=== PATIENT | female | born 1965 | race Caucasian/White ===

== ENCOUNTER → 2016-09-23 | Outpatient (CLI) | payer OTHER ==
[~2016-09-23] MED LIST: PEDICHW50 PO
--- NOTE | 2016-09-23 07:49 | DIAGNOSTIC IMAGING REPORT ---
LEFT UPPER EXT JOINT WITHOUT CLINICAL HISTORY: 51 years-old Female presenting with left shoulder pain, no injury, concern for rotator cuff tear. TECHNIQUE: Multisequence, multiplanar MR imaging of the left shoulder was performed without the use of intravenous contrast. IV contrast: None. COMPARISON: Correlation made to plain radiographs of the shoulders from 09/19/2016. FINDINGS: Localizer images: Unremarkable. No bony edema. No focal cartilage defect. Mild superior subluxation of the humeral head relative to the glenoid. This results in narrowing of the acromiohumeral interval, which measures 8 mm. Labrum intact. Fluid noted within the subacromial subdeltoid bursa. Trace left shoulder joint effusion. Linear defect within the supraspinatus tendon extending from the articular to the bursal surface consistent with full-thickness tear at the critical zone. No evidence of retraction. An articular surface partial thickness tear may involve the anteriormost fibers of the infraspinatus muscle at the insertion. Teres minor tendon intact. Subscapularis intact. Long head of the biceps tendon well seated within the intertubercular groove. Biceps labral complex intact. Acromioclavicular joint intact. Concave undersurface of the acromion. Mild atrophy of the supraspinatus without evidence of fatty infiltration. Otherwise normal muscle bulk. IMPRESSION: 1. Mild superior subluxation of the humeral head relative to the glenoid resulting in narrowing of the acromiohumeral interval. 2. Full-thickness tear of the supraspinatus tendon in the critical zone. 3. Articular surface insertional partial tear of the anteriormost fibers of the infraspinatus. Electronically signed by: Terry Nascimento M.D. 09/23/2016 7:48 AM Dictated Date/Time: 09/23/2016 7:38 AM
== END | disposition home or self-care (01) ==
LOC: C.MRI 06:44
PROVIDERS: ATTEND Orthopaedic Surgery
DX: S46.812A Strain of other muscles, fascia and tendons at shoulder and upper arm level, left arm, initial encounter (principal); X58.XXXA Exposure to other specified factors, initial encounter

== ENCOUNTER 2016-12-01 21:36 | Emergency (ER) | payer OTHER ==
[~2016-12-01] VITALS: Ht 165.1 cm; Wt 80.8 kg
[2016-12-01 21:39] VITALS: Ht 165.1 cm; Wt 80.8 kg
[2016-12-01] MEDS ORDERED: ONDANSETRON INJ 2 MG/ML 2 ML VIAL IV STA (22:13)
[2016-12-01] MEDS ORDERED: HYDROmorphone INJ 0.5 MG/0.5 ML SYR IV STA (22:13)
[2016-12-01] MEDS ORDERED: SODIUM CHLORIDE 0.9% 1000ML 1,000 ML IV STA (22:13)
[2016-12-01] MEDS ORDERED: ONDANSETRON INJ 2 MG/ML 2 ML VIAL ONE (22:26)
[2016-12-01] MEDS ORDERED: HYDROmorphone INJ 0.5 MG/0.5 ML SYR ONE (22:26)
[2016-12-01 22:40] LABS: BASO % 0.8 %; BASO ABS # 0.05 K/uL (0-0.2); COMPLETE YES; EOS % 3.5 %; HEMATOCRIT 36.5 % (37-47); IG% 0.2 %; LYMPH % 36.1 %; LYMPH ABS # 2.25 K/uL (1.2-3.4); MEAN CELL VOLUME 87.5 fL (80-100); MEAN CORPUSCULAR HEMOGLOBIN 29.3 pg (25-34); MEAN CORPUSCULAR HGB CONC 33.4 g/dl (32-36); MEAN PLATELET VOLUME 11.2 fL (7.4-10.4); MONO % 10.4 %; PLATELET COUNT 203 K/uL (130-400); RED BLOOD COUNT 4.17 M/uL (4.2-5.4); WHITE BLOOD COUNT 6.24 K/uL (4.8-10.8)
[2016-12-01 22:57] LABS: ALT/SGPT 32 U/L (12-78); BLOOD UREA NITROGEN 17 mg/dl (7-18); BUN/CREATININE RATIO 22.8 (10-20); CALCIUM 8.3 mg/dl (8.5-10.1); CARBON DIOXIDE 25 mmol/L (21-32); CHLORIDE 110 mmol/L (98-107); CREATININE 0.75 mg/dl (0.60-1.20); GLUCOSE 99 mg/dl (70-99); POTASSIUM 4.2 mmol/L (3.5-5.1); SODIUM 141 mmol/L (136-145)
[2016-12-01 23:00] LABS: ALKALINE PHOSPHATASE 121 U/L (45-117); AST/SGOT 30 U/L (15-37)
[2016-12-01 23:08] LABS: URINE APPEARANCE CLEAR (CLEAR); URINE BILIRUBIN NEG (NEG); URINE COLOR YELLOW; URINE NITRITE NEG (NEG); URINE PH 6.5 (4.5-7.5); URINE SPECIFIC GRAVITY 1.023 (1.000-1.030); UROBILINOGEN NEG (NEG)
[2016-12-01 23:09] LABS: MANUAL MICROSCOPIC REQUIRED? NO; REVIEW REQ? NO
--- NOTE | 2016-12-01 23:23 | DIAGNOSTIC IMAGING REPORT ---
ABD/PELVIS WITHOUT FOR STONE CLINICAL HISTORY: 51 years-old Female presenting with EVALUATE FLANK PAIN/HEMATURIA, right-sided flank pain. TECHNIQUE: Multidetector CT of the abdomen and pelvis was performed without the use of intravenous contrast. IV contrast: None. A dose lowering technique was used consistent with the principles of ALARA (as low as reasonably achievable). COMPARISON: 11/20/2015. CT DOSE (mGy.cm): The estimated cumulative dose is 1327.28 mGy.cm. FINDINGS: Hospice Entrance Attendant topogram: Unremarkable. Lung bases: Lung bases clear. Normal heart size. Small pericardial effusion. No pleural effusion. Liver: Normal morphology. Normal density. Biliary: No gross biliary ductal dilatation allowing for noncontrast technique. Normal gallbladder. Pancreas: Normal noncontrast appearance. Spleen: Normal noncontrast appearance. Adrenal glands: Normal noncontrast appearance. Kidneys and ureters: Previously noted right renal calculus is no longer apparent. Hypodensity along the anterior aspect of the lower pole of the left kidney has slightly increased in prominence from the prior exam although fairly similar morphology. No hydronephrosis. No hydroureter. No periureteral fat stranding. Bladder: Incompletely evaluated secondary to underdistention. No bladder calculus. Pelvic organs: Uterus and ovaries normal. Bowel: Postsurgical changes of antecolic Jose-en-Y gastric bypass. Normal appendix. Small amount of fluid in the excluded stomach, which is new from prior. More distally, the pancreaticobiliary limb is dilated with diameter measuring up to 3.5 cm. The distended pancreaticobiliary limb remains distended the level of the anastomosis in the left mid abdomen (series 3 image 200). The Jose limb and distal small bowel appears nonobstructive. No pneumatosis or significant bowel wall thickening. Peritoneal cavity: No free fluid or intraperitoneal gas. Lymph nodes: No gross lymphadenopathy allowing for noncontrast technique. Vasculature: Atherosclerosis of the normal caliber abdominal aorta. Abdominal wall: Mild subcutaneous edema diffusely. Musculoskeletal: Degenerative changes of the spine. IMPRESSION: 1. Findings concerning for obstruction of the pancreaticobiliary limb of the antecolic Jose-en-Y gastric bypass. The obstruction appears to be at the pancreaticobiliary limb anastomosis. This finding was discussed with MENG Fu by Dr. Nascimento at 11:19 PM on 12/01/2016. 2. Subtle prominent contour of the anterior aspect of the lower pole of the left kidney, new from prior. This raises concern for increased size of an underlying renal lesion. Further evaluation with contrast-enhanced CT or MR for dedicated examination of the kidneys is recommended to exclude renal neoplasm. Electronically signed by: Terry Nascimento M.D. 12/01/2016 11:22 PM Dictated Date/Time: 12/01/2016 11:09 PM
--- NOTE | 2016-12-02 00:50 | EMERGENCY ROOM VISIT NOTE ---
ED Visit Note First contact with patient: 22:04 Chief Complaint: I'm having right-sided back pain. History of Present Illness: Ms. Rodriguez is a 51 year-old white female who ambulates into the ED complaining of pain in the right flank area. Historically patient reports she is status post gastric bypass from April 2015 and left adrenal gland removal from 1998. Patient reports she's been feeling well over the last few days. This evening approximately 2.5 hours ago she was sitting at home watching TV and started experiencing right sided thoracic back pain. She reports initially her pain was mild and has gradually increased in intensity. She has difficulty describing her discomfort and feels it is a combination of sharp and cramping. She rates her discomfort 7/10. Her pain does radiate into the abdomen into the epigastric area. Her pain worsens movements of the spine and palpation of the epigastric area. She has not identified any alleviating factors related to the pain. She has not taken any medications for pain prior to arrival at the hospital. Associated with her pain she reports she's been nauseated but has not had any vomiting and she has noticed some increased urinary frequency with out burning urged. Patient denies fevers, chills, sweats, skin eruptions, skin color changes, upper respiratory tract symptoms, shortness of breath, chest pain, diarrhea, constipation, rectal bleeding, black/tarry stools, hematuria, vaginal bleeding, vaginal discharge. Review of Systems: As noted above in history of present illness. All body systems were reviewed and found to be negative as noted above. Past Medical History: As previously noted, diabetes, hypertension, bronchitis and status post bilateral knee replacements. Current Medications: Flintstones vitamins. Allergies to Medications: Morphine, CT dye. Social History: Patient is currently employed; she feels safe in her home environment; she denies tobacco and alcohol use. Physical Examination: Vital Signs: Date Time Temp Pulse Resp B/P (MAP) Pulse Ox O2 Delivery O2 Flow Rate FiO2 12/01/16 23:37 60 16 154/75 98 Room Air 12/01/16 23:04 60 12/01/16 21:39 36.9 80 16 158/101 98 Room Air GENERAL: 51-year-old female in mild to moderate distress due to pain, nontoxic- appearing, afebrile and hemodynamically stable. Patient is found walking around in her room. NEUROLOGICAL: Awake, alert and oriented to person, place and time. Answering questions appropriately and following commands. Normal gait. Good hand eye coordination. SKIN: Warm, dry and pink. No soft tissue eruptions or trauma noted. HEENT: Atraumatic and normocephalic. PERRL. Sclera white and conjunctiva pink. Oral cavity moist and pink. Pharynx is nonerythematous or edematous. Speech normal. No lymphadenopathy. Trachea midline. No jugular venous distention. BACK: No tenderness over the bony spine. No CVA tenderness. THORAX: Lungs sounds are clear to auscultation and equal bilaterally with symmetrical chest wall. No wheezing, rales or rhonchi. No crepitus, tenderness , subcutaneous air or deformities noted. HEART: Regular rate and rhythm. No gallops, rubs or murmurs are appreciated. ABDOMEN: Flat and soft with mild to moderate tenderness in the epigastrium. Increased bowel sounds in all quadrants. No guarding, rigidity or organomegaly. EXTREMITIES: Moves all extremities well on command and with purpose. All distal neurovascular statuses are intact and equal bilaterally. ED Course: Patient is assessed as noted above. Patient's medication list was reviewed. Laboratory Testing: Test 12/01/16 22:25 12/01/16 22:50 Range/Units White Blood Count 6.24 4.8-10.8 K/uL Red Blood Count 4.17 4.2-5.4 M/uL Hemoglobin 12.2 12.0-16.0 g/dL Hematocrit 36.5 37-47 % Mean Corpuscular Volume 87.5 80-100 fL Mean Corpuscular Hemoglobin 29.3 25-34 pg Mean Corpuscular Hemoglobin Concent 33.4 32-36 g/dl Platelet Count 203 130-400 K/uL Mean Platelet Volume 11.2 7.4-10.4 fL Neutrophils (%) (Auto) 49.0 % Lymphocytes (%) (Auto) 36.1 % Monocytes (%) (Auto) 10.4 % Eosinophils (%) (Auto) 3.5 % Basophils (%) (Auto) 0.8 % Neutrophils # (Auto) 3.06 1.4-6.5 K/uL Lymphocytes # (Auto) 2.25 1.2-3.4 K/uL Monocytes # (Auto) 0.65 0.11-0.59 K/uL Eosinophils # (Auto) 0.22 0-0.5 K/uL Basophils # (Auto) 0.05 0-0.2 K/uL RDW Standard Deviation 42.1 36.4-46.3 fL RDW Coefficient of Variation 13.2 11.5-14.5 % Immature Granulocyte % (Auto) 0.2 % Immature Granulocyte # (Auto) 0.01 0.00-0.02 K/uL Sodium Level 141 136-145 mmol/L Potassium Level 4.2 3.5-5.1 mmol/L Chloride Level 110 98-107 mmol/L Carbon Dioxide Level 25 21-32 mmol/L Anion Gap 6.0 3-11 mmol/L Blood Urea Nitrogen 17 7-18 mg/dl Creatinine 0.75 0.60-1.20 mg/dl Est Creatinine Clear Calc Drug Dose 92.1 ml/min Estimated GFR () 106.2 Estimated GFR (Non- 91.6 BUN/Creatinine Ratio 22.8 10-20 Random Glucose 99 70-99 mg/dl Calcium Level 8.3 8.5-10.1 mg/dl Total Bilirubin 0.3 0.2-1 mg/dl Direct Bilirubin < 0.1 0-0.2 mg/dl Aspartate Amino Transf (AST/SGOT) 30 15-37 U/L Alanine Aminotransferase (ALT/SGPT) 32 12-78 U/L Alkaline Phosphatase 121 45-117 U/L Total Protein 7.0 6.4-8.2 gm/dl Albumin 3.6 3.4-5.0 gm/dl Lipase 218 73-393 U/L Urine Color YELLOW Urine Appearance CLEAR CLEAR Urine pH 6.5 4.5-7.5 Urine Specific [place] 1.023 1.000-1.030 Urine Protein NEG NEG Urine Glucose (UA) NEG NEG Urine Ketones TRACE NEG Urine Occult Blood NEG NEG Urine Nitrite NEG NEG Urine Bilirubin NEG NEG Urine Urobilinogen NEG NEG Urine Leukocyte Esterase NEG NEG Noncontrast Abdominal/Pelvic CT: Was reviewed by myself and read by the radiologist and shows dilatation of the diameter of the pancreaticobiliary limb of her bypass measuring up to 3.5 cm. This distention extends to the level of her anastomosis site in the left midabdomen. Additionally radiologist noticed a subtle prominent contour of the anterior aspect of the lower pole of the left kidney raising concerns for possible increased size of an underlying renal lesion. Patient was hydrated with normal saline and she received a 0.5 mg the Dilaudid IV and 4 mg of Zofran IV for her symptoms. Patient was reassessed multiple times during her stay in the emergency department. Patient's case was reviewed with Dr. Meneses; we agreed on diagnostic approach, treatment, disposition and plan per Patient's case was consulted with Dr. Tatum, general surgeon; he recommended contacting the surgery department at [facility] where she had her surgery. Patient's case was consulted with Dr. Gregory, surgeon at [facility]; he recommended interfacility transfer. Patient was educated about today's findings and instructed on her treatment plan. Clinical Impression: Possible small bowel obstruction of her pancreaticobiliary limb of her Jose-en-Y gastric bypass. Decision-Making: Initially my differential diagnosis I considered pyelonephritis , kidney stone, musculoskeletal disorder, early herpes zoster, pancreatitis, hepatitis, bowel obstruction, appendicitis and other causes. Disposition and Plan: Patient to be transferred to [facility] via ambulance.
[2016-12-02] MEDS ORDERED: HYDROmorphone INJ 0.5 MG/0.5 ML SYR ONE (02:34)
[2016-12-02] MEDS ORDERED: NURSING VERBAL MED ORDER ONE (02:45)
[2016-12-02 06:18] VITALS: TEMP 36.7
[2016-12-02] MEDS ORDERED: ONDANSETRON INJ 2 MG/ML 2 ML VIAL IV STA (07:30)
[2016-12-02] MEDS ORDERED: HYDROmorphone INJ 0.5 MG/0.5 ML SYR IV STA (07:30)
[2016-12-02 07:45] VITALS: BP 162/89; PULSE 55; O2SAT 98
== END 2016-12-02 06:45 | disposition short-term general hospital (02) ==
LOC: C.EDB 21:37
DX: R10.9 Unspecified abdominal pain (principal); Z98.84 Bariatric surgery status; E11.9 Type 2 diabetes mellitus without complications; I10 Essential (primary) hypertension; Z96.653 Presence of artificial knee joint, bilateral

== ENCOUNTER → 2016-12-30 | Outpatient (CLI) | payer OTHER ==
[2016-12-30 13:47] LABS: BLOOD UREA NITROGEN 11 mg/dl (7-18); BUN/CREATININE RATIO 14.8 (10-20); CREATININE 0.71 mg/dl (0.60-1.20)
== END | disposition home or self-care (01) ==
LOC: C.LAB 11:22
PROVIDERS: ATTEND Urology
DX: N28.89 Other specified disorders of kidney and ureter (principal)

== ENCOUNTER → 2017-01-02 | Outpatient (CLI) | payer OTHER ==
--- NOTE | 2017-01-02 07:43 | DIAGNOSTIC IMAGING REPORT ---
MRI KIDNEYS WITHOUT A WITH GADOLINIUM CLINICAL HISTORY: N28.89 LEFT RENAL MASS. TECHNIQUE: Imaging was performed prior to and following IV contrast injection. COMPARISON STUDY: CT scan dated 12/01/2016, renal ultrasound dated 01-06 FINDINGS: Imaging was performed in the axial and coronal planes, before and after the administration of 7.5 cc of intravenous Gadavist. There are no suspicious areas of marrow replacement. No hepatic or splenic masses are visualized. The spleen is borderline enlarged measuring 12 cm. No adrenal masses are visualized. No gallbladder abnormalities are visualized. No pancreatic masses are visualized. There is no evidence of abdominal aortic dilatation. There is no pathologic adenopathy. No right renal masses are visualized. There is a 26 mm septated cystic anterior lower pole left renal mass. Postcontrast images reveal enhancing thick walled septations. This lesion should be presumed neoplastic until proven otherwise. IMPRESSION: Partially cystic anterior lower pole left renal mass measuring 26 mm. Postcontrast images reveal enhancing thick-walled septations. This lesion should be presumed neoplastic until proven otherwise. Electronically signed by: Lui Robin M.D. 01/02/2017 7:41 AM Dictated Date/Time: 01/02/2017 7:33 AM
== END | disposition home or self-care (01) ==
LOC: C.MRI 05:50
PROVIDERS: ATTEND Urology
DX: N28.89 Other specified disorders of kidney and ureter (principal)

== ENCOUNTER 2017-03-02 10:22 | Inpatient (IN) | payer OTHER ==
[2017-02-10 09:59] VITALS: BMI 29.0
--- NOTE | 2017-02-10 10:26 | PAT Medication Instructions ---
Service Date Feb 10, 2017. Current Home Medication List [B 12 Inj], Unknown Dose INJ Q3MO Medication Instructions For Your Scheduled Surgery - Continue as directed: [B 12 Inj], Unknown Dose INJ Q3MO Nothing to eat or drink after midnight If you have any questions please call us at [phone] or [phone] or [phone]
--- NOTE | 2017-02-10 11:03 | DIAGNOSTIC IMAGING REPORT ---
CHEST 2 VIEWS ROUTINE HISTORY: 52 years-old Female pat preoperative exam without acute chest complaints COMPARISON: Chest radiograph 11/20/2015 TECHNIQUE: PA and lateral views of the chest FINDINGS: Cardiomediastinal and hilar silhouettes are within normal limits. No pneumothorax, pleural effusion, focal airspace consolidation or overt pulmonary edema. Bones of the chest appear grossly intact. Surgical clips project within the region of the epigastrium. Mild dextroscoliosis of the lower thoracic spine. Multilevel endplate spurring of the spine. IMPRESSION: No acute process. The above report was generated using voice recognition software. It may contain grammatical, syntax or spelling errors. Electronically signed by: Naresh Watts M.D. 02/10/2017 11:02 AM Dictated Date/Time: 02/10/2017 11:01 AM
[2017-02-10 11:23] LABS: BASO % 0.5 %; BASO ABS # 0.02 K/uL (0-0.2); EOS % 4.3 %; EOS ABS # 0.16 K/uL (0-0.5); HEMATOCRIT 37.6 % (37-47); HEMOGLOBIN 12.6 g/dL (12.0-16.0); IG# 0.01 K/uL (0.00-0.02); LYMPH % 35.1 %; MEAN CELL VOLUME 88.3 fL (80-100); MEAN CORPUSCULAR HEMOGLOBIN 29.6 pg (25-34); MEAN CORPUSCULAR HGB CONC 33.5 g/dl (32-36); MEAN PLATELET VOLUME 11.5 fL (7.4-10.4); MONO ABS # 0.26 K/uL (0.11-0.59); NEUT % 52.8 %; NEUT ABS # 1.95 K/uL (1.4-6.5); PLATELET COUNT 161 K/uL (130-400); RED CELL DISTRIBUTION WIDTH CV 12.9 % (11.5-14.5); RED CELL DISTRIBUTION WIDTH SD 41.5 fL (36.4-46.3)
[2017-02-10 11:27] LABS: CALCIUM 9.2 mg/dl (8.5-10.1); CREATININE 0.76 mg/dl (0.60-1.20); POTASSIUM 4.2 mmol/L (3.5-5.1)
[~2017-03-02] VITALS: Ht 165.1 cm; Wt 79.1 kg
[2017-03-02] VITALS (7 sets, daily range): BP systolic 122–145; BP diastolic 67–92; PULSE 56–97; TEMP 36.4–37.1; O2SAT 94–100; BMI 29.0
[~2017-03-02 10:22] MED LIST changes: +CEFAZOLIN 2000MG IV PUSH 10 ML IV SCH; +LACTATED RINGER'S 1000ML 1,000 ML IV SCH; -PEDICHW50 PO; +[UNRECOGNIZED DRUG - OTHER] INJ
--- NOTE | 2017-03-02 11:32 | History & Physical Bridge Note ---
H&P Re-Evaluation Bridge Note: I have examined the patient, reviewed the History & Physical and in the interval since the performance of the History & Physical I have noted the following changes of clinical significance: No changes noted
[2017-03-02] MEDS ORDERED: EpHEDrine SULFATE INJ 50 MG/ML AMP ONE (11:58)
[2017-03-02] MEDS ORDERED: LIDOCAINE HCL 2% 2 ML VIAL (20MG/ML) ONE (11:58)
[2017-03-02] MEDS ORDERED: PHENYLEPHRINE HCL INJ 10 MG/ML VIAL ONE (11:58)
[2017-03-02] MEDS ORDERED: MIDAZOLAM HCL 1 MG/ML 2ML VIAL ONE (11:58)
[2017-03-02] MEDS ORDERED: NEOSTIGMINE METHYLSULFATE 5 MG/5 ML SYR ONE (11:58)
[2017-03-02] MEDS ORDERED: DEXAMETHASONE SOD INJ 4 MG/ML VIAL ONE (11:58)
[2017-03-02] MEDS ORDERED: SUCCINYLCHOLINE CHLORIDE 20 MG/ML 10 ML VIAL IV ONE (11:58)
[2017-03-02] MEDS ORDERED: GLYCOPYRROLATE INJ 0.2 MG/ML VIAL ONE (11:58)
[2017-03-02] MEDS ORDERED: PROPOFOL IV EMULSION 10 MG/ML 20 ML VIAL IV ONE (11:58)
[2017-03-02] MEDS ORDERED: ONDANSETRON INJ 2 MG/ML 2 ML VIAL ONE (11:58)
[2017-03-02] MEDS ORDERED: FENTANYL CITRATE INJ 50 MCG/1 ML 2 ML VIAL ONE ×2 (11:59→13:55)
[2017-03-02] MEDS ORDERED: MANNITOL 25% 50 ML VIAL ONE (12:34)
[2017-03-02] MEDS ORDERED: BUPIVACAINE 0.5 % 5 MG/1 ML MPF 30ML VIAL ONE (12:40)
[2017-03-02] MEDS ORDERED: GELATIN SPONGE SZ 100 ONE (12:40)
[2017-03-02] MEDS ORDERED: HYDROmorphone INJ 2 MG/ML SYR/VIAL ONE (14:02)
[2017-03-02] MEDS ORDERED: TISSEEL FIBRIN SEALANT 10ML TOP ONE ×2 (14:32→16:00)
[2017-03-02] MEDS ORDERED: CISATRACURIUM BESYLATE IV SOLN 2 MG/ML 10 ML VIAL ONE ×2 (14:50)
[2017-03-02] MEDS ORDERED: ATROPINE SULFATE 0.1 MG/ML 5ML SYR IV PRN (16:00)
[2017-03-02] MEDS ORDERED: EpHEDrine SULFATE INJ 50 MG/ML AMP IV PRN (16:00)
[2017-03-02] MEDS ORDERED: ONDANSETRON INJ 2 MG/ML 2 ML VIAL IV PRN ×2 (16:00→16:30)
[2017-03-02] MEDS ORDERED: PROMETHAZINE HCL INJ 6.25 MG in SODIUM CHLORIDE 0.9% 50ML 50 ML IV PRN (16:00)
[2017-03-02] MEDS ORDERED: SURGICEL ABSORB HEMOSTAT 2IN X 14IN TOP ONE (16:00)
--- NOTE | 2017-03-02 16:29 | [facility] Post Operative Brief Note ---
Immediate Operative Summary Operative Date Mar 02, 2017. Pre-Operative Diagnosis Left Bosniak 3 renal cyst Post-Operative Diagnosis Same Procedure(s) Performed Robotic Assisted Left Laparoscopic Partial Nephrectomy with Laparascopic Lysis of Adhesions Surgeon Dr. Aime Lowry Stippler Surgeon(s) ROB De & Dr. Rickey Simpson Estimated Blood Loss 350 mL Findings Cystic lesion removed intact, 20 minutes warm ischemia time, ? partial clamp, excellent hemostasis after closure. Specimens Permanent specimens L anterior renal mass, fat overlying tumor Drains #10 MITCH drain, hinson to gravity Anesthesia GAET + local Complication(s) None Disposition Recovery Room / PACU
[2017-03-02] MEDS ORDERED: HYDROmorphone INJ 1 MG/ML SYR IV PRN (16:30)
[2017-03-02] MEDS: FENTANYL CITRATE INJ 50 MCG/1 ML 2 ML VIAL IV PRN ×4 (16:44→16:59)
[2017-03-02 17:01] LABS: HEMATOCRIT 36.3 % (37-47); HEMOGLOBIN 12.5 g/dL (12.0-16.0); MEAN CELL VOLUME 87.5 fL (80-100); MEAN CORPUSCULAR HEMOGLOBIN 30.1 pg (25-34); MEAN PLATELET VOLUME 11.1 fL (7.4-10.4); PLATELET COUNT 157 K/uL (130-400); RED CELL DISTRIBUTION WIDTH CV 12.5 % (11.5-14.5); WHITE BLOOD COUNT 8.93 K/uL (4.8-10.8)
[2017-03-02] MEDS: HYDROmorphone INJ 1 MG/ML SYR IV PRN ×4 (17:02→17:20)
[2017-03-02] MEDS ORDERED: HYDROmorphone INJ 0.5 MG/0.5 ML SYR ONE (17:16)
[2017-03-02 17:17] LABS: MEAN CORPUSCULAR HGB CONC 34.4 g/dl (32-36)
--- NOTE | 2017-03-02 17:19 | [facility] Operative Report ---
Operative Report Operative Date Mar 02, 2017. Pre-Operative Diagnosis Left Bosniak 3 Renal Cyst Post-Operative Diagnosis Same, intraabdominal adhesions Procedure(s) Performed Robotic Assisted Left Laparoscopic Partial Nephrectomy with Laparascopic Lysis of Adhesions Surgeon Dr. Aime Lowry Dermatology Nurse Surgeon(s) ROB De & Dr. Rickey Simpson Estimated Blood Loss 350 mL Findings Cystic mass removed intact, excellent hemostasis after completion of closure, questionable partial clamping, 20 minutes of warm ischemia time. Fluids 2000 cc crystalloid Specimens Permanent specimens A: Left anterior renal mass B: Fat overlying tumor Drains #10 MITCH drain, hinson to gravity Anesthesia GAET + local Complication(s) None Disposition Recovery Room / PACU Indications Patient is a pleasant 52-year-old female who had seen as an outpatient for a history of a partially enhancing cystic lesion on her anterior left kidney felt to be consistent with a Bosniak 3 renal cyst. Please see H&P for further details. After discussion of risks and benefits of various forms of intervention patient has decided upon a robot-assisted partial nephrectomy to manage her disease. Due to the location of her tumor directly abutting the renal hilum she understands the higher than average odd of a completion nephrectomy as well as the odds of a benign tumor. Description of Procedure Patient was properly identified and brought into the operative suite after identification for appropriate consent of the chart. General anesthesia with endotracheal intubation was initiated and patient was prepped and draped in standard fashion for this procedure. Full timeout procedure was followed. Patient was placed in a flexed, left side up position with all pressure points padded and left arm in an arm board. Axillary roll was used. 12 mm visual obturator was used to enter the abdomen under direct visualization using a 0 laparoscope. Abdomen was insufflated with CO2 to a level of 15 mmHg and inspected. Patient was noted to have a fairly significant amount of scarring and distended stomach likely due to her postop gastric bypass status. In the midline and right upper quadrant a significant amount of scarring with bowel adhesions was present. A 7 mm port was placed in the lower left abdomen and used in association with cold scissors for laparoscopic lysis of adhesions to allow for placement of remaining ports. A second 7 mm robotic port was placed as well as two 12 mm assistant kitchen manager ports. Robot was brought in and docked using a 30 down lens. The white line of Toldt was incised, somewhat more inflamed and adherent than usual and the retroperitoneum was exposed. Bowels dissected medially until the gonadal vessel and ureter were encountered over the psoas muscle. Lateral attachments of the spleen were taken to allow for more mobility and space and exposure of the retroperitoneum. After dissecting medial to the ureter the kidney was put on lateral traction to allow for cephalad dissection up to the level of the renal hilum. A single renal artery and vein with insertion of the gonadal vein and identification of the adrenal vein were noted. These were circumscribed and dissected free to allow for clamping at the time of tumor resection. Gerota's fascia was then sharply entered after identifying the edges of the tumor using intraoperative ultrasound. As appreciated on preoperative imaging the tumor skived along the major vessels of the kidney. This was exposed, edges were marked with cautery at the level of the renal capsule and deep dissection over the renal vein was carried out. After the tumor was felt to be appropriately prepared suture material was entered into the abdomen including a 2-0 Vicryl suture for the deeper structures and Vlock sutures backloaded with Weck clips and Lapara-Ty's for closure of the renal capsule. Mannitol flush was given and a single clamp was placed on first the artery then the vein. Tumor was dissected free using cold scissors were possible to allow for identification of tissue planes. However, when the deeper aspects of the tumor were encountered, relatively significant bleeding was encountered from the deeper blood vessels. This was felt to be possibly consistent with an incomplete clamp. One large anterior branch of the renal vein was noted to be bleeding and feeding into the tumor and was controlled with 2 clips for additional hemostasis. At no point was the complex cyst felt to be violated and on inspection after removal the capsule of the tumor was appreciated to be intact. No spillage of cystic fluid and no violation of the renal collecting system was appreciated throughout the case. After the tumor was freed from its bed the Vicryl suture was used after anchoring to the renal capsule with a Weck clip to oversew the base of the tumor were a bleeding sinus was appreciated. Again, no violation of the collecting system was noted. After this was complete the renal capsule was reapproximated using locking suture with Weck clip pledgets. Excellent hemostasis was rapidly obtained. Vascular bulldogs were removed for a total of 20 minutes of warm ischemia time. FloSeal tissue sealant was placed deep within the renal defect followed by a Surgicel bolster. Excellent hemostasis was again noted after tightening the sutures. Renal tumor and the fat overlying the tumor were placed within an Endo Catch bag for retrieval at the end of the case via the lower most 10 mm port. Surgicel and Tisseel were placed at the level of the renal capsule and the remaining Gerota's fascia was closed. A small splenic laceration was covered with Tisseel and FloSeal. Lowermost robotic port was removed a #10 flat MITCH drain was brought in via this port and placed within the left paracolic gutter. This was secured at the level of the skin using a silk suture. Robotic instruments and ports were removed and the 10 mm lowermost port was enlarged sufficiently to allow for easy passage of the specimen bag. Fascia was closed at the 10 mm ports using a 0 Vicryl suture on a UR 6 needle. Skin was closed using Monocryl and Dermabond dressings after removal of excess carbon dioxide gas from the abdomen and removal of flexion from the table. MITCH was placed to bulb suction and anesthesia was reversed. Patient was transferred to the recovery room in stable condition. Follow-up care: Patient will be admitted to the floor for standard postoperative management. I attest to the content of the Intraoperative Record and any orders documented therein. Any exceptions are noted below.
--- NOTE | 2017-03-02 17:28 | Anesthesiology Progress Note ---
Anesthesia Post Op Note Date & Time Mar 02, 2017 at 17:28 Vital Signs Vital Signs Past 12 Hours Date Time Temp Pulse Resp B/P (MAP) Pulse Ox O2 Delivery O2 Flow Rate FiO2 03/02/17 17:02 72 10 03/02/17 17:02 67 10 99 03/02/17 17:01 150/63 03/02/17 17:01 150/63 03/02/17 17:00 53 17 03/02/17 17:00 54 17 94 03/02/17 17:00 54 17 94 03/02/17 17:00 53 17 03/02/17 16:55 60 11 168/81 100 03/02/17 16:55 62 11 03/02/17 16:55 62 11 03/02/17 16:55 60 11 168/81 100 03/02/17 16:50 89 11 180/112 100 03/02/17 16:50 89 11 180/112 100 03/02/17 16:50 89 11 03/02/17 16:50 89 11 03/02/17 16:45 92 16 185/96 100 03/02/17 16:45 92 16 185/96 100 03/02/17 16:45 92 16 03/02/17 16:45 92 16 03/02/17 16:41 170/118 03/02/17 16:41 170/118 03/02/17 16:40 92 15 185/105 100 03/02/17 16:40 92 15 03/02/17 16:40 92 15 185/105 100 03/02/17 16:40 92 15 03/02/17 16:40 36.2 92 14 170/118 98 Oxymask 10 03/02/17 10:40 36.7 89 16 133/92 Room Air Notes Mental Status: alert / awake / arousable, participated in evaluation Pt Amnestic to Procedure: Yes Nausea / Vomiting: adequately controlled Pain: adequately controlled Airway Patency, RR, SpO2: stable & adequate BP & HR: stable & adequate Hydration State: stable & adequate Anesthetic Complications: no major complications apparent
[2017-03-02] MEDS ORDERED: NURSING VERBAL MED ORDER ONE (17:30)
[2017-03-02 17:34] LABS: CALCIUM 8.8 mg/dl (8.5-10.1); CREATININE 0.86 mg/dl (0.60-1.20); POTASSIUM 4.3 mmol/L (3.5-5.1)
[2017-03-02] MEDS ORDERED: ACETAMINOPHEN 1000 MG/100 ML IV IV ONE (17:39)
[2017-03-02] MEDS: CEFAZOLIN IV 2,000 MG in SYRINGE 0 ML IV SCH (21:54)
[2017-03-02] MEDS: DOCUSATE SODIUM 100 MG CAP PO SCH (21:54)
[2017-03-03] MEDS: OXYCODONE/ACETAMINOPHEN 7.5-325 TAB PO PRN ×4 (00:01→19:49)
[2017-03-03] MEDS: LACTATED RINGER'S 1000ML 1,000 ML IV SCH ×3 (00:02→07:56)
[2017-03-03] MEDS: ACETAMINOPHEN IV 650 MG in EMPTY BAG 0 ML IV SCH ×4 (00:11→17:36)
[2017-03-03 03:17] VITALS: BP 108/62; PULSE 74; TEMP 36.8; O2SAT 97
[2017-03-03 05:36] LABS: BASO % 0.2 %; BASO ABS # 0.01 K/uL (0-0.2); HEMATOCRIT 31.2 % (37-47); HEMOGLOBIN 10.3 g/dL (12.0-16.0); IG# 0.01 K/uL (0.00-0.02); LYMPH % 10.1 %; LYMPH ABS # 0.63 K/uL (1.2-3.4); MEAN CELL VOLUME 87.9 fL (80-100); MEAN PLATELET VOLUME 11.2 fL (7.4-10.4); MONO % 10.3 %; MONO ABS # 0.64 K/uL (0.11-0.59); NEUT % 79.2 %; NEUT ABS # 4.95 K/uL (1.4-6.5); PLATELET COUNT 176 K/uL (130-400); RED CELL DISTRIBUTION WIDTH CV 12.5 % (11.5-14.5); RED CELL DISTRIBUTION WIDTH SD 40.2 fL (36.4-46.3); WHITE BLOOD COUNT 6.24 K/uL (4.8-10.8)
[2017-03-03 05:57] LABS: CALCIUM 8.2 mg/dl (8.5-10.1); CREATININE 0.9 mg/dl (0.60-1.20); POTASSIUM 4.7 mmol/L (3.5-5.1)
[2017-03-03] MEDS: CEFAZOLIN IV 2,000 MG in SYRINGE 0 ML IV SCH ×2 (06:11→13:59)
[2017-03-03 07:24] VITALS: BP 119/69; PULSE 58; TEMP 36.5; O2SAT 95
[2017-03-03] MEDS: DOCUSATE SODIUM 100 MG CAP PO SCH ×2 (07:57→20:37)
[2017-03-03] MEDS: HEPARIN SOD 5000 UNIT/0.5 ML CARP SQ SCH ×2 (08:00→20:37)
[2017-03-03] MEDS ORDERED: CLC100 PO (08:20)
[2017-03-03] MEDS ORDERED: OXYC7.5T62 PO (08:20)
--- NOTE | 2017-03-03 08:28 | Anesthesiology Progress Note ---
Anesthesia Post Op Note Date & Time Mar 03, 2017 at 08:27 Vital Signs Pain Intensity: 6.0 Vital Signs Past 12 Hours Date Time Temp Pulse Resp B/P (MAP) Pulse Ox O2 Delivery O2 Flow Rate FiO2 03/03/17 07:24 36.5 58 19 119/69 (86) 95 Room Air 03/03/17 03:17 36.8 74 16 108/62 (77) 97 Room Air 03/02/17 23:30 Nasal Cannula 1.0 03/02/17 23:02 37.1 79 16 122/70 (87) 98 Nasal Cannula 1.0 Notes Mental Status: alert / awake / arousable, participated in evaluation Pt Amnestic to Procedure: Yes Nausea / Vomiting: adequately controlled Pain: adequately controlled Airway Patency, RR, SpO2: stable & adequate BP & HR: stable & adequate Hydration State: stable & adequate Anesthetic Complications: no major complications apparent
[2017-03-03 08:58] VITALS: Ht 165.1 cm; Wt 79.1 kg
--- NOTE | 2017-03-03 11:03 | Discharge Instructions ---
Discharge Instructions Date of Service Mar 02, 2017. Admission Reason for Admission: Left Renal Mass Discharge Discharge Diagnosis / Problem: Left renal mass Discharge Goals Goal(s): Decrease discomfort, Improve disease control, Improve nutritional status, Therapeutic intervention Activity Recommendations Activity Limitations: per Instructions/Follow-up section Shower/Bathe: tomorrow . Instructions / Follow-Up Instructions / Follow-Up 1. Do not lift >15lbs x 6 weeks. 2. No heavy exercise x 6 weeks. You may engage in light activity such as walking and stairs as tolerated. 3. Do not drive x [address] while taking narcotics. 4. Follow-up as scheduled. Please call our office at [phone] if you need to reschedule for any reason. . . Current Hospital Diet Patient's current hospital diet: Clear Liquid Diet Discharge Diet Recommended Diet: Regular Diet (Gastric Bypass diet) Procedures Procedures Performed: Robotic Assisted Left Laparoscopic Partial Nephrectomy with Laparascopic Lysis of Adhesions Pending Studies Studies pending at discharge: yes (left renal mass) List of pending studies: left renal mass Medical Emergencies . Who to Call and When: Medical Emergencies: If at any time you feel your situation is an emergency, please call 911 immediately. . Non-Emergent Contact Non-Emergency issues call your: Urologist Call Non-Emergent contact if: temperature is above 101.5, your pain is not controlled, your pain is worsening, your pain is unusual for you, your pain is concerning you, wound has increased drainage, wound has increased redness, wound has increased pain, you have any medication questions . . "Provider Documentation" section prepared by Shantal Walker. . VTE Core Measure Inpt VTE Proph given/why not?: Unfractionated heparin SQ, SCD's [place] Drug Monitoring Program Search Results: patient reviewed within database, no issues identified
--- NOTE | 2017-03-03 11:08 | Progress Note ---
Subjective Date of Service: Mar 03, 2017. Subjective Pt evaluation today including: conversation w/ patient, chart review, lab review Voiding: hinson catheter in place (patent, draining clear, yellow urine) 52 yo female s/p left partial nephrectomy. Pt denies pain this morning. Denies n/v. Denies flatus or BM. Labs stable. I&Os acceptable. Problem List Medical Problems: (1) Cervical radiculopathy Status: Acute (2) Dystonic drug reaction Status: Acute Review of Systems Constitutional: No fever, No chills Respiratory: No shortness of breath Cardiac: No chest pain Abdomen: No pain, No nausea, No vomiting Female : No dysuria, No hematuria Heme: No abnormal bleeding/bruising Objective Vital Signs Date Time Temp Pulse Resp B/P (MAP) Pulse Ox O2 Delivery O2 Flow Rate FiO2 03/03/17 07:45 Room Air 03/03/17 07:24 36.5 58 19 119/69 (86) 95 Room Air 03/03/17 03:17 36.8 74 16 108/62 (77) 97 Room Air 03/02/17 23:30 Nasal Cannula 1.0 03/02/17 23:02 37.1 79 16 122/70 (87) 98 Nasal Cannula 1.0 03/02/17 19:55 36.4 74 16 122/78 (93) 98 Nasal Cannula 2.0 03/02/17 18:55 36.5 97 14 138/80 (99) 99 Nasal Cannula 2.0 03/02/17 18:25 59 14 139/67 (91) 100 Nasal Cannula 4.0 03/02/17 18:09 98 Nasal Cannula 4.0 03/02/17 17:55 36.5 56 14 145/83 (103) 94 Nasal Cannula 4.0 03/02/17 17:45 55 12 129/62 94 Nasal Cannula 4 03/02/17 17:30 36.3 84 12 128/85 98 Nasal Cannula 4 03/02/17 17:20 36.3 58 12 145/84 98 Nasal Cannula 4 03/02/17 17:02 72 10 03/02/17 17:02 67 10 99 03/02/17 17:01 150/63 03/02/17 17:01 150/63 03/02/17 17:00 53 17 03/02/17 17:00 54 17 94 03/02/17 17:00 54 17 94 03/02/17 17:00 53 17 03/02/17 16:55 60 11 168/81 100 03/02/17 16:55 62 11 03/02/17 16:55 62 11 03/02/17 16:55 60 11 168/81 100 03/02/17 16:50 89 11 180/112 100 03/02/17 16:50 89 11 180/112 100 03/02/17 16:50 89 11 03/02/17 16:50 89 11 03/02/17 16:45 92 16 185/96 100 03/02/17 16:45 92 16 185/96 100 03/02/17 16:45 92 16 03/02/17 16:45 92 16 03/02/17 16:41 170/118 03/02/17 16:41 170/118 03/02/17 16:40 92 15 185/105 100 03/02/17 16:40 92 15 03/02/17 16:40 92 15 185/105 100 03/02/17 16:40 92 15 03/02/17 16:40 36.2 92 14 170/118 98 Oxymask 10 Physical Exam General Appearance: no apparent distress Eyes: normal inspection ENT: hearing grossly normal Neck: no JVD Respiratory/Chest: no respiratory distress, no accessory muscle use Cardiovascular: no JVD Abdomen: + pertinent finding (abdominal incisions c/d/i; MITCH draining sanguinous fluid) Extremities: normal inspection Neurologic/Psychiatric: alert, normal mood/affect, oriented x 3 Skin: normal color Laboratory Results Last 24 Hours Test 03/02/17 11:23 03/02/17 16:53 03/03/17 05:23 White Blood Count 8.93 K/uL 6.24 K/uL Red Blood Count 4.15 M/uL 3.55 M/uL Hemoglobin 12.5 g/dL 10.3 g/dL Hematocrit 36.3 % 31.2 % Mean Corpuscular Volume 87.5 fL 87.9 fL Mean Corpuscular Hemoglobin 30.1 pg 29.0 pg Mean Corpuscular Hemoglobin Concent 34.4 g/dl 33.0 g/dl RDW Standard Deviation 40.0 fL 40.2 fL RDW Coefficient of Variation 12.5 % 12.5 % Platelet Count 157 K/uL 176 K/uL Mean Platelet Volume 11.1 fL 11.2 fL Sodium Level 135 mmol/L 136 mmol/L Potassium Level 4.3 mmol/L 4.7 mmol/L Chloride Level 103 mmol/L 103 mmol/L Carbon Dioxide Level 28 mmol/L 30 mmol/L Anion Gap 4.0 mmol/L 3.0 mmol/L Blood Urea Nitrogen 16 mg/dl 18 mg/dl Creatinine 0.86 mg/dl 0.90 mg/dl Est Creatinine Clear Calc Drug Dose 78.6 ml/min 75.1 ml/min Estimated GFR () 89.4 84.6 Estimated GFR (Non- 77.1 73.0 BUN/Creatinine Ratio 18.7 19.6 Random Glucose 155 mg/dl 195 mg/dl Calcium Level 8.8 mg/dl 8.2 mg/dl Neutrophils (%) (Auto) 79.2 % Lymphocytes (%) (Auto) 10.1 % Monocytes (%) (Auto) 10.3 % Eosinophils (%) (Auto) 0.0 % Basophils (%) (Auto) 0.2 % Neutrophils # (Auto) 4.95 K/uL Lymphocytes # (Auto) 0.63 K/uL Monocytes # (Auto) 0.64 K/uL Eosinophils # (Auto) 0.00 K/uL Basophils # (Auto) 0.01 K/uL Immature Granulocyte % (Auto) 0.2 % Immature Granulocyte # (Auto) 0.01 K/uL Prothrombin Time 11.0 SECONDS Prothromb Time International Ratio 1.0 Assessment and Plan POD #1 s/p left partial nephrectomy. AFVSS. Pt doing well post-op. Will advance to a mechanical soft gastric bypass diet. Encourage chewing gum. Encourage use of IS. Encourage ambulation to hallway. Hep lock IVF. TOV this morning. Possible d/c home after lunch if tolerating PO, ambulating without difficulty, and pain controlled. The pt was seen and assessed with Dr. Lowry this morning. Discharge planning: home
[2017-03-03 14:49] VITALS: BP 131/80; PULSE 60; TEMP 36.7; O2SAT 94
[2017-03-03] MEDS ORDERED: NURSING VERBAL MED ORDER ONE (17:45)
[2017-03-03 23:12] VITALS: BP 120/70; PULSE 78; TEMP 37.1; O2SAT 94
[2017-03-04] MEDS: ACETAMINOPHEN IV 650 MG in EMPTY BAG 0 ML IV SCH ×6 (00:09→23:20)
[2017-03-04 07:03] VITALS: BP 132/84; PULSE 81; TEMP 37; O2SAT 94
[2017-03-04 07:15] LABS: BASO % 0.3 %; BASO ABS # 0.02 K/uL (0-0.2); EOS % 1.3 %; EOS ABS # 0.08 K/uL (0-0.5); HEMATOCRIT 32.7 % (37-47); HEMOGLOBIN 10.8 g/dL (12.0-16.0); LYMPH % 28.7 %; LYMPH ABS # 1.81 K/uL (1.2-3.4); MEAN CELL VOLUME 89.8 fL (80-100); MEAN CORPUSCULAR HEMOGLOBIN 29.7 pg (25-34); MEAN PLATELET VOLUME 11.3 fL (7.4-10.4); MONO ABS # 0.57 K/uL (0.11-0.59); NEUT % 60.7 %; NEUT ABS # 3.82 K/uL (1.4-6.5); PLATELET COUNT 164 K/uL (130-400); RED CELL DISTRIBUTION WIDTH CV 12.9 % (11.5-14.5)
[2017-03-04 07:47] LABS: CALCIUM 8.4 mg/dl (8.5-10.1); CREATININE 0.88 mg/dl (0.60-1.20); POTASSIUM 3.9 mmol/L (3.5-5.1)
[2017-03-04] MEDS: DOCUSATE SODIUM 100 MG CAP PO SCH ×2 (08:56→20:17)
[2017-03-04] MEDS: HEPARIN SOD 5000 UNIT/0.5 ML CARP SQ SCH ×2 (09:01→21:23)
[2017-03-04] MEDS ORDERED: BISACODYL 10 MG SUPP ONE (11:26)
[2017-03-04] MEDS ORDERED: NURSING VERBAL MED ORDER ONE (11:30)
--- NOTE | 2017-03-04 11:40 | Progress Note ---
Subjective Date of Service: Mar 04, 2017. Subjective Pt evaluation today including: conversation w/ patient, physical exam, chart review, review of studies pt has not passed flatus and had dry heaves this am feels abd pain that she says feels like gas pain Problem List Medical Problems: (1) Cervical radiculopathy Status: Acute (2) Dystonic drug reaction Status: Acute Objective Vital Signs Date Time Temp Pulse Resp B/P (MAP) Pulse Ox O2 Delivery O2 Flow Rate FiO2 03/04/17 07:45 Room Air 03/04/17 07:03 37.0 81 18 132/84 (100) 94 Room Air 03/04/17 00:06 Room Air 03/03/17 23:12 37.1 78 16 120/70 (87) 94 Room Air 03/03/17 16:30 Room Air 03/03/17 14:49 36.7 60 16 131/80 (97) 94 Room Air Physical Exam Abdomen: soft (pain around incisions), + abnormal bowel sounds Skin: normal color, warm/dry (some mild redness around every incision , possible reaction) Comments: bowel sounds hypoactive but present no diffuse abdominal pain abdomen not grossly distended and not painful except around 2 of the incisions Laboratory Results Last 24 Hours Test 03/04/17 06:12 White Blood Count 6.30 K/uL Red Blood Count 3.64 M/uL Hemoglobin 10.8 g/dL Hematocrit 32.7 % Mean Corpuscular Volume 89.8 fL Mean Corpuscular Hemoglobin 29.7 pg Mean Corpuscular Hemoglobin Concent 33.0 g/dl Platelet Count 164 K/uL Mean Platelet Volume 11.3 fL Neutrophils (%) (Auto) 60.7 % Lymphocytes (%) (Auto) 28.7 % Monocytes (%) (Auto) 9.0 % Eosinophils (%) (Auto) 1.3 % Basophils (%) (Auto) 0.3 % Neutrophils # (Auto) 3.82 K/uL Lymphocytes # (Auto) 1.81 K/uL Monocytes # (Auto) 0.57 K/uL Eosinophils # (Auto) 0.08 K/uL Basophils # (Auto) 0.02 K/uL RDW Standard Deviation 42.0 fL RDW Coefficient of Variation 12.9 % Immature Granulocyte % (Auto) 0.0 % Immature Granulocyte # (Auto) 0.00 K/uL Sodium Level 139 mmol/L Potassium Level 3.9 mmol/L Chloride Level 104 mmol/L Carbon Dioxide Level 29 mmol/L Anion Gap 6.0 mmol/L Blood Urea Nitrogen 13 mg/dl Creatinine 0.88 mg/dl Est Creatinine Clear Calc Drug Dose 76.8 ml/min Estimated GFR () 86.9 Estimated GFR (Non- 75.0 BUN/Creatinine Ratio 15.3 Random Glucose 121 mg/dl Calcium Level 8.4 mg/dl Assessment and Plan pt with signs of ileus ,Wbc nl , restart iv fluids , dulcolox suppository, kub, toradol for pain Discharge planning: home
[2017-03-04] MEDS ORDERED: KETOROLAC TROMETHAMINE 30 MG/ML VIAL IV PRN (11:45)
[2017-03-04] MEDS ORDERED: BISACODYL 10 MG SUPP PR PRN (11:45)
--- NOTE | 2017-03-04 12:31 | DIAGNOSTIC IMAGING REPORT ---
KUB CLINICAL HISTORY: ileus post op partial nephrectomy pain COMPARISON STUDY: None FINDINGS: Air-filled small bowel as well as colon. Postoperative changes including a drainage catheter overlying the left abdominal region. Multiple surgical suture lines in a left paravertebral location. No evidence for an obstructive pattern. This appearance is suggestive of that of a moderate generalized nonobstructive postprocedural ileus. IMPRESSION: Moderate nonobstructive ileus. Postoperative changes as noted. The above report was generated using voice recognition software. It may contain grammatical, syntax or spelling errors. Electronically signed by: Landon Jurado M.D. 03/04/2017 12:30 PM Dictated Date/Time: 03/04/2017 12:28 PM
[2017-03-04] MEDS: SODIUM CHLOR 0.45% + 20MEQ KCL 1,000 ML IV SCH ×2 (13:32→20:16)
[2017-03-04 15:16] VITALS: BP 123/79; PULSE 77; TEMP 37; O2SAT 95
[2017-03-04 22:59] VITALS: BP 110/68; PULSE 82; TEMP 36.8; O2SAT 97
[2017-03-05] MEDS: SODIUM CHLOR 0.45% + 20MEQ KCL 1,000 ML IV SCH ×2 (03:01→08:16)
[2017-03-05] MEDS: ACETAMINOPHEN IV 650 MG in EMPTY BAG 0 ML IV SCH ×2 (06:11→11:48)
[2017-03-05 07:01] VITALS: BP 126/77; PULSE 76; TEMP 37.2; O2SAT 95
[2017-03-05 07:04] LABS: BASO % 0.9 %; BASO ABS # 0.04 K/uL (0-0.2); EOS % 3.2 %; EOS ABS # 0.15 K/uL (0-0.5); HEMATOCRIT 30.1 % (37-47); HEMOGLOBIN 9.9 g/dL (12.0-16.0); IG# 0.01 K/uL (0.00-0.02); LYMPH ABS # 1.08 K/uL (1.2-3.4); MEAN CELL VOLUME 89.3 fL (80-100); MEAN CORPUSCULAR HEMOGLOBIN 29.4 pg (25-34); MEAN CORPUSCULAR HGB CONC 32.9 g/dl (32-36); MEAN PLATELET VOLUME 11.3 fL (7.4-10.4); MONO ABS # 0.47 K/uL (0.11-0.59); NEUT % 62.7 %; NEUT ABS # 2.94 K/uL (1.4-6.5); PLATELET COUNT 149 K/uL (130-400); RED CELL DISTRIBUTION WIDTH CV 12.6 % (11.5-14.5); RED CELL DISTRIBUTION WIDTH SD 40.6 fL (36.4-46.3); WHITE BLOOD COUNT 4.69 K/uL (4.8-10.8)
[2017-03-05 07:51] LABS: CALCIUM 8.4 mg/dl (8.5-10.1); CREATININE 0.65 mg/dl (0.60-1.20); POTASSIUM 4.2 mmol/L (3.5-5.1)
[2017-03-05] MEDS: DOCUSATE SODIUM 100 MG CAP PO SCH (09:00)
[2017-03-05] MEDS: HEPARIN SOD 5000 UNIT/0.5 ML CARP SQ SCH (09:00)
--- NOTE | 2017-03-05 09:47 | Progress Note ---
Subjective Date of Service: Mar 05, 2017. Subjective Pt evaluation today including: conversation w/ patient, conversation w/ family , physical exam, chart review, lab review, conversation w/ business system consultant Passing flatus and stool ready for d/c Problem List Medical Problems: (1) Cervical radiculopathy Status: Acute (2) Dystonic drug reaction Status: Acute Objective Vital Signs Date Time Temp Pulse Resp B/P (MAP) Pulse Ox O2 Delivery O2 Flow Rate FiO2 03/05/17 07:01 37.2 76 16 126/77 (93) 95 Room Air 03/04/17 23:24 Room Air 03/04/17 22:59 36.8 82 16 110/68 (82) 97 Room Air 03/04/17 18:10 Room Air 03/04/17 15:16 37.0 77 16 123/79 (94) 95 Room Air Laboratory Results Last 24 Hours Test 03/05/17 05:46 White Blood Count 4.69 K/uL Red Blood Count 3.37 M/uL Hemoglobin 9.9 g/dL Hematocrit 30.1 % Mean Corpuscular Volume 89.3 fL Mean Corpuscular Hemoglobin 29.4 pg Mean Corpuscular Hemoglobin Concent 32.9 g/dl Platelet Count 149 K/uL Mean Platelet Volume 11.3 fL Neutrophils (%) (Auto) 62.7 % Lymphocytes (%) (Auto) 23.0 % Monocytes (%) (Auto) 10.0 % Eosinophils (%) (Auto) 3.2 % Basophils (%) (Auto) 0.9 % Neutrophils # (Auto) 2.94 K/uL Lymphocytes # (Auto) 1.08 K/uL Monocytes # (Auto) 0.47 K/uL Eosinophils # (Auto) 0.15 K/uL Basophils # (Auto) 0.04 K/uL RDW Standard Deviation 40.6 fL RDW Coefficient of Variation 12.6 % Immature Granulocyte % (Auto) 0.2 % Immature Granulocyte # (Auto) 0.01 K/uL Sodium Level 139 mmol/L Potassium Level 4.2 mmol/L Chloride Level 105 mmol/L Carbon Dioxide Level 31 mmol/L Anion Gap 3.0 mmol/L Blood Urea Nitrogen 8 mg/dl Creatinine 0.65 mg/dl Est Creatinine Clear Calc Drug Dose 104.0 ml/min Estimated GFR () 117.5 Estimated GFR (Non- 101.4 BUN/Creatinine Ratio 12.5 Random Glucose 92 mg/dl Calcium Level 8.4 mg/dl Assessment and Plan ileus resolved dc pt Discharge planning: home
[2017-03-05 09:51] VITALS: BP 126/77; PULSE 76; TEMP 37.2; O2SAT 95
--- NOTE | 2017-03-09 06:07 | EDITING REQUIRED CODING QUERY ---
PATHOLOGY To promote full compliance with coding requirements relating to patient care, physician participation is requested in all cases of accounts collector uncertainty. Please assist us with the question(s) below: Please review the Pathology report and please document any relevant diagnosis (es) below: Diagnosis (es): Cystic clear cell renal carcinoma Thank you! Araceli Lopez
== END 2017-03-05 12:41 | disposition home or self-care (01) | DRG 657 ==
LOC: C.ACU 10:22 → C.3E 16:26 → CANRESERV 17:07 → ENRESERV 17:07
PROVIDERS: ADMIT Urology; ATTEND Urology
PROC: 0TB14ZZ Excision of Left Kidney, Percutaneous Endoscopic Approach (ICD-10-PCS; principal; 2017-03-02 12:15)
DX: C64.2 Malignant neoplasm of left kidney, except renal pelvis (principal); K56.7 Ileus, unspecified; N28.89 Other specified disorders of kidney and ureter; Z98.84 Bariatric surgery status

== ENCOUNTER → 2017-03-14 | Outpatient (CLI) | payer OTHER ==
[~2017-03-14] MED LIST changes: -CEFAZOLIN 2000MG IV PUSH 10 ML IV SCH; +CLC100 PO; -LACTATED RINGER'S 1000ML 1,000 ML IV SCH; +OXYC7.5T62 PO
== END | disposition home or self-care (01) ==
LOC: C.LABSPEC 17:07
PROVIDERS: ATTEND Urology
DX: R31.9 Hematuria, unspecified (principal); R30.0 Dysuria

== ENCOUNTER → 2017-06-08 | Outpatient (CLI) | payer OTHER | END | disposition home or self-care (01) | LOC: C.PAPS 09:29 | PROVIDERS: ATTEND Obstetrics & Gynecology | DX: Z12.4 Encounter for screening for malignant neoplasm of cervix (principal) ==

== ENCOUNTER → 2017-06-08 | Outpatient (CLI) | payer OTHER ==
[2017-06-08 17:48] LABS: ALBUMIN 3.9 gm/dl (3.4-5.0); ALT/SGPT 26 U/L (12-78); AST/SGOT 23 U/L (15-37); BLOOD UREA NITROGEN 13 mg/dl (7-18); CALCIUM 8.7 mg/dl (8.5-10.1); CARBON DIOXIDE 29 mmol/L (21-32); CREATININE 0.77 mg/dl (0.60-1.20); GLUCOSE 84 mg/dl (70-99); POTASSIUM 3.8 mmol/L (3.5-5.1); SODIUM 137 mmol/L (136-145)
[2017-06-08 17:51] LABS: ALKALINE PHOSPHATASE 128 U/L (45-117); TOTAL PROTEIN 7.7 gm/dl (6.4-8.2)
== END | disposition home or self-care (01) ==
LOC: C.LAB 16:51
PROVIDERS: ATTEND Urology
DX: C64.9 Malignant neoplasm of unspecified kidney, except renal pelvis (principal)

== ENCOUNTER → 2017-06-23 | Outpatient (CLI) | payer OTHER ==
[~2017-06-23] MED LIST changes: +GADAVIST IV PRN
--- NOTE | 2017-06-23 07:53 | DIAGNOSTIC IMAGING REPORT ---
TWO VIEW CHEST CLINICAL HISTORY: Renal cell carcinoma. FINDINGS: PA and lateral chest radiographs are compared to study dated 02/10/2017. The cardiomediastinal silhouette is unremarkable. The lungs and pleural spaces are clear. There is no pneumothorax. The skeletal structures are osteopenic. Mild scoliosis is noted in the thoracic spine. Surgical clips are noted in the upper abdomen. IMPRESSION: No active disease in the chest. Electronically signed by: Tae Junior M.D. 06/23/2017 7:52 AM Dictated Date/Time: 06/23/2017 7:51 AM
--- NOTE | 2017-06-23 08:17 | DIAGNOSTIC IMAGING REPORT ---
MRI OF THE ABDOMEN WITH AND WITHOUT CONTRAST RENAL PROTOCOL CLINICAL HISTORY: Clear cell carcinoma of kidney status post partial nephrectomy. COMPARISON STUDY: MRI of the abdomen January 02, 2017. TECHNIQUE: Utilizing a 1.5 Lakia magnet and dedicated coil, multiplanar, multiecho imaging of the abdomen was performed pre and postcontrast administration. Postcontrast imaging was performed utilizing dynamic enhancement. Injection of 8.5 cc of Gadavist IV was uneventful. FINDINGS: There are expected postoperative findings consistent with partial nephrectomy within the anterior cortex of the mid to lower pole of the left kidney at site of lesion shown on exam of January 02, 2017. There is no abnormal enhancement to suggest residual or recurrent tumor. No renal lesions are present. There is no abdominal lymphadenopathy. The liver, spleen, adrenal glands and pancreas are unremarkable. No ascites is present. No marrow replacement is identified within visualized skeletal structures. There is no hydronephrosis. IMPRESSION: No evidence for residual/recurrent malignancy status post left partial nephrectomy. Expected postoperative findings. Electronically signed by: Wyatt Mcbride M.D. 06/23/2017 8:16 AM Dictated Date/Time: 06/23/2017 7:52 AM
== END | disposition home or self-care (01) ==
LOC: C.MRI 06:30
PROVIDERS: ATTEND Urology
DX: C64.9 Malignant neoplasm of unspecified kidney, except renal pelvis (principal)

== ENCOUNTER → 2017-09-14 | Outpatient (CLI) | payer OTHER ==
[~2017-09-14] MED LIST changes: -GADAVIST IV PRN
[2017-09-14 09:52] LABS: BASO % 0.7 %; BASO ABS # 0.03 K/uL (0-0.2); EOS ABS # 0.16 K/uL (0-0.5); HEMATOCRIT 38.5 % (37-47); HEMOGLOBIN 12.5 g/dL (12.0-16.0); LYMPH % 31.8 %; LYMPH ABS # 1.28 K/uL (1.2-3.4); MEAN CELL VOLUME 86.7 fL (80-100); MEAN CORPUSCULAR HEMOGLOBIN 28.2 pg (25-34); MEAN CORPUSCULAR HGB CONC 32.5 g/dl (32-36); MEAN PLATELET VOLUME 11.7 fL (7.4-10.4); MONO % 8.7 %; MONO ABS # 0.35 K/uL (0.11-0.59); NEUT % 54.8 %; NEUT ABS # 2.21 K/uL (1.4-6.5); PLATELET COUNT 182 K/uL (130-400); RED CELL DISTRIBUTION WIDTH CV 13.4 % (11.5-14.5); RED CELL DISTRIBUTION WIDTH SD 43.1 fL (36.4-46.3); WHITE BLOOD COUNT 4.03 K/uL (4.8-10.8)
== END | disposition home or self-care (01) ==
LOC: C.LAB 08:32
PROVIDERS: ATTEND Internal Medicine
DX: Z00.00 Encounter for general adult medical examination without abnormal findings (principal); E55.9 Vitamin D deficiency, unspecified; E53.8 Deficiency of other specified B group vitamins; Z98.84 Bariatric surgery status; Z11.59 Encounter for screening for other viral diseases